=== PATIENT | female | born 1990 | race Caucasian/White ===

== ENCOUNTER 2019-05-31 12:16 | Outpatient (REF) | payer MEDICAID, SELFPAY ==
--- NOTE | 2019-05-31 10:00 | SKI_PTH ---
PATIENT: Deysi Ken LOC: [facility] U#:[id number] AGE/SX: 28/F ROOM: RE05/31/[address]: Chantal Moreno : 1990 BED: DIS: 05/31/2019 SPEC #: [id number] RECD: 05/31/19 12:26 STATUS: DARLIN REMarty #: [id number] QIAN: 05/31/19 10:[address]: Chantal Moreno DEPT: Surgical Specimen RECD BY: Meghan Norwood ENTERED: 05/31/19 12:27 SP TYPE: ALYSIA QUIÑONEZ DR: Aimee Colvin Tissues: 1 - SKIN BIOPSY(SHAVE/PUNCH) Procedures: IMMUNOPEROXIDASE STAIN SKIN LEVEL 4 Comments: [id number]
== END 2019-05-31 12:36 ==
LOC: NCHCN 12:16
PROVIDERS: PCP Nurse Practitioner Family; Visit Provider Family Medicine
DX: D22.4 Melanocytic nevi of scalp and neck (principal)
CPT/HCPCS: 88305; 88361

== ENCOUNTER 2022-11-23 13:58 | Outpatient (CLI) | payer MEDICAID, SELFPAY ==
[2022-11-23 14:32] VITALS: BP 121/72; PULSE 86; TEMP 36.7
[2022-11-23 14:35] VITALS: BP 121/72; PULSE 86
[2022-11-23] MEDS: IRON SUCROSE COMPLEX 200 MG in Normal Saline 100 ML 400 MG IVPB (15:01)
--- NOTE | 2022-11-23 16:02 | W.OBNST ---
Date of service: 11/23/22 Time of Service: 16:02 NST Evaluation Reason for NST Reasons for Nonstress Test: GDM-DIET CONTROLLED Gestational Age Gestational Age in Weeks and Days: 35 Weeks and 4Days Test and Monitor Explained Test/Monitor Explained: Test Explained, Monitor Explained and Patient Verbalized Understanding Vital Signs Blood Pressure: 121/72 Pulse: 86 Temperature: 98.1 F NST Information Date on Monitor: 11/23/22 Time on Monitor: 14:28 Date off Monitor: 11/23/22 Time off Monitor: 15:18 Total Time on Monitor: 50 NST Interventions: PO Hydration NST Evaluation Patient States Movement: Present FHR Baseline: 135 Variability: Moderate 6-25 bpm Accelerations: 15x15 Decelerations: None NST Results: Reactive Note Ultrasound Done: N/A. NST Note Note: Deysi presented to [facility] for first visit after transferring care here. Weekly testing was recommended due to history of preeclampsia and Current GDM. Anemia diagnosed today with labwork. NST is reactive. Iron infusion provided with venofer IV. GBS sent. preeclampsia labs normal today. RTO in 5 days for visit and NST. Will plan to administer another dose of venofer if indicated., NST Reviewed and Verified by: Luna Luna
[2022-11-23 16:05] VITALS: BP 121/72; PULSE 86; TEMP 36.7
== END 2022-11-23 15:40 | disposition home or self-care (01) ==
LOC: BCD 14:22 → OBS 14:41
PROVIDERS: PCP Nurse Practitioner Family; Visit Provider Advanced Practice Midwife
DX: O24.410 Gestational diabetes mellitus in pregnancy, diet controlled (principal); O09.293 Supervision of pregnancy with other poor reproductive or obstetric history, third trimester; Z3A.35 35 weeks gestation of pregnancy; O99.013 Anemia complicating pregnancy, third trimester
CPT/HCPCS: 59025; 87081; J1756

== ENCOUNTER 2022-11-23 13:59 | Outpatient (REF) | payer MEDICAID, SELFPAY ==
[2022-11-23 15:22] LABS: *AMPHETAMINES SCREEN URINE Negative (Negative); *BARBITURATES SCREEN URINE Negative (Negative); *BENZODIAZEPINES SCREEN URINE Negative (Negative); Cannabinoids THC Negative (Negative); Cocaine Screen,Urine Negative (Negative); METHADONE URINE SCREEN Negative (Negative); OPIATES URINE SCREEN Negative (Negative)
[2022-11-23 15:29] LABS: Tricyclic Antidepressants Negative (Negative)
[2022-12-05 03:18] LABS: Buprenorphine Negative ng/mL (Cutoff: 5.0)
== END 2022-11-23 14:00 | disposition home or self-care (01) ==
LOC: LBN 13:59
PROVIDERS: PCP Nurse Practitioner Family; Visit Provider Advanced Practice Midwife
DX: Z34.93 Encounter for supervision of normal pregnancy, unspecified, third trimester (principal)
CPT/HCPCS: 36415; 80053; 80307; 80348; 85027; 86787; 86900; 86901; 83036; 84550; 87081

== ENCOUNTER 2022-11-23 14:47 | Outpatient (CLI) | payer MEDICAID, SELFPAY ==
[2022-11-23 14:34] LABS: HCT 30.3 % (36.0-46.0); HGB 10.1 g/dL (11.2-15.7); MCH 28.1 pg (27.0-33.0); MCHC 33.3 % (32.0-36.0); MCV 84 fL (80-95); MPV 9.6 fL (8.0-11.0); Platelet Count 185 10^3/uL (130-400); RDW 14.7 % (11.7-14.6); WBC 7.31 10^3/uL (4.4-10.8)
[2022-11-23 14:51] LABS: ALT 24 U/L (14-59); AST 25 U/L (15-37); Albumin 2.5 g/dL (3.4-5.0); Alkaline Phosphatase 121 U/L (46-116); Anion Gap 12.7 mmol/L (3-11); BUN 7 mg/dL (7-18); Bilirubin, Total 0.3 mg/dL (0.2-1.0); CO2 23.3 mmol/L (21.0-32.0); CREATININE 0.6 mg/dL (0.55-1.02); Calcium 9.2 mg/dL (8.5-10.1); Chloride 104 mmol/L (98-107); Estimated GFR 122.99 (mL/min/1.73m2); Glucose 78 mg/dL (74-106); Sodium 140 mmol/L (136-145); Total Protein 6.2 g/dL (6.4-8.2); Uric Acid 4.4 mg/dL (2.6-6.0)
[2022-11-23 14:54] LABS: Hemoglobin A1C 5.4 % (<5.7)
[2022-11-23 14:59] LABS: Potassium 2.8 mmol/L (3.5-5.1)
[2022-11-25 12:10] LABS: Varicella IgG Antibody Positive (See Note)
== END 2022-11-23 14:48 | disposition home or self-care (01) ==
LOC: LBO 14:47
PROVIDERS: PCP Nurse Practitioner Family; Visit Provider Advanced Practice Midwife
DX: O09.293 Supervision of pregnancy with other poor reproductive or obstetric history, third trimester; O24.410 Gestational diabetes mellitus in pregnancy, diet controlled; Z3A.35 35 weeks gestation of pregnancy
CPT/HCPCS: 36415; 80053; 80348; 85027; 86787; 86850; 86900; 86901; 83036; 84550; 87081

== ENCOUNTER 2022-11-28 08:13 | Outpatient (CLI) | payer MEDICAID, SELFPAY ==
[2022-11-28 09:00] VITALS: BP 129/82; PULSE 82
[2022-11-28 09:01] VITALS: BP 129/82; PULSE 82; TEMP 37
[2022-11-28 09:45] LABS: Abs Immature Grans 0.02 10^3/uL (0.0-0.06); Absolute Basophil Count 0.03 10^3/uL (0.0-0.2); Absolute Eosinophil Count 0.27 10^3/uL (0.0-0.7); Absolute Lymphocyte Count 1.95 10^3/uL (1.2-3.4); Absolute Monocyte Count 0.41 10^3/uL (0.1-0.8); Basophils % 0.4; Eosinophils % 3.5; HCT 30.9 % (36.0-46.0); HGB 9.9 g/dL (11.2-15.7); Immature Grans % 0.3; Lymphocytes % 25.4; MCH 27.8 pg (27.0-33.0); MCV 87 fL (80-95); MPV 9.7 fL (8.0-11.0); Monocytes % 5.3; Neutrophils % 65.1; Platelet Count 193 10^3/uL (130-400); RBC 3.56 10^6/uL (3.93-5.22); RDW 15.9 % (11.7-14.6); RDW-SD 47.8 fL; WBC 7.68 10^3/uL (4.4-10.8)
--- NOTE | 2022-11-28 09:56 | W.OBNST ---
Date of service: 11/28/22 Time of Service: 09:56 NST Evaluation Reason for NST Reasons for Nonstress Test: GDM-DIET CONTROLLED Gestational Age Gestational Age in Weeks and Days: 36 Weeks and 2Days Test and Monitor Explained Test/Monitor Explained: Test Explained, Monitor Explained and Patient Verbalized Understanding Vital Signs Blood Pressure: 129/82 Pulse: 82 Temperature: 98.6 F Urine Results Urine Protein: Negative Urine Ketones: Negative Urine Glucose: Negative Urine Blood: Negative NST Information Date on Monitor: 11/28/22 Time on Monitor: 08:55 Date off Monitor: 11/28/22 Time off Monitor: 09:32 Total Time on Monitor: 37 NST Interventions: None Contraction Frequency: 0 NST Evaluation Patient States Movement: Present FHR Baseline: 150 Variability: Moderate 6-25 bpm Accelerations: 15x15 Decelerations: None NST Results: Reactive Note Ultrasound Done: N/A. NST Note Note: NST reactive. Hgb 9.9 today venofer 200 mg IV infusion provided. RTO 1 week. NST Reviewed and Verified by: Luna Luna
[2022-11-28 09:58] VITALS: BP 129/82; PULSE 82; TEMP 37
[2022-11-28] MEDS: IRON SUCROSE COMPLEX 200 MG in Normal Saline 100 ML 400 MG IVPB (10:41)
[2022-11-28] MEDS: Normal Saline Flush 10 ML SYR (10:49)
== END 2022-11-28 11:06 | disposition home or self-care (01) ==
LOC: BCD 08:14 → OBS 08:52
PROVIDERS: PCP Nurse Practitioner Family; Visit Provider Advanced Practice Midwife
DX: O24.410 Gestational diabetes mellitus in pregnancy, diet controlled (principal); Z3A.36 36 weeks gestation of pregnancy
CPT/HCPCS: 36415; 96365; 59025; 85025; J1756

== ENCOUNTER 2022-11-30 02:45 | Outpatient (CLI) | payer MEDICAID, SELFPAY ==
--- NOTE | 2022-11-30 08:45 | DI.US_ITS ---
Exam(s) US OB CHENG WEIGHT EXAM: US OB CHENG WEIGHT CLINICAL HISTORY: growth at 36 wks, 024.419. TECHNIQUE: Transabdominal obstetrical ultrasound performed. COMPARISON: No exams were available for comparison FINDINGS: Number of fetuses: 1 position: CEPHALIC Placental location: There is a grade 2 anterior placenta. No evidence of previa. BIOMETRIC DATA: BPD: 8.78 cm, 35 weeks 3 days HC: 33.57 cm, 38 weeks 3 days AC: 33.41 cm, 37 weeks 2 days FL: 7.53 cm, 38 weeks 4 days EFW: 3229.24 g, LINK-TO-SR, 78.3 % Composite Age: 37 weeks 3 days JENNY: 12/18/2022 Heart Rate: 140 bpm Amniotic fluid index: 10.06 cm. Visually, amount of fluid is within normal limits. IMPRESSION: 1. Single live intrauterine gestation as above. 2. Estimated weight is 3229gms. This is the 78th percentile. 3. Amniotic fluid index is 10.1 cm. Visually within normal limits. DATA REPOSITORY:
== END 2022-11-30 03:05 ==
LOC: DI 02:45
PROVIDERS: PCP Nurse Practitioner Family; Visit Provider Advanced Practice Midwife
DX: O24.410 Gestational diabetes mellitus in pregnancy, diet controlled (principal)
CPT/HCPCS: 76816

== ENCOUNTER 2022-12-02 09:14 | Outpatient (CLI) | payer MEDICAID, SELFPAY ==
[2022-12-02] MEDS: IRON SUCROSE COMPLEX 200 MG in Normal Saline 100 ML 400 MG IVPB (09:51)
[2022-12-02 09:52] VITALS: BP 129/81; PULSE 80; TEMP 36.4
--- NOTE | 2022-12-02 11:06 | W.OBNST ---
Date of service: 12/02/22 Time of Service: 11:06 NST Evaluation Reason for NST Reasons for Nonstress Test: GDM-DIET CONTROLLED Gestational Age Gestational Age in Weeks and Days: 37 Weeks and 0Days Test and Monitor Explained Test/Monitor Explained: Test Explained, Monitor Explained and Patient Verbalized Understanding Vital Signs Blood Pressure: 129/81 Pulse: 80 Temperature: 97.5 F Urine Results Urine Protein: Negative Urine Ketones: Negative Urine Glucose: Negative Urine Blood: Negative NST Information Date on Monitor: 12/02/22 Time on Monitor: 09:16 Date off Monitor: 12/02/22 Time off Monitor: 09:50 Total Time on Monitor: 34 NST Interventions: PO Hydration and Other Contraction Frequency: occasional NST Evaluation Patient States Movement: Present FHR Baseline: 140 Variability: Moderate 6-25 bpm Accelerations: 15x15 Decelerations: None NST Results: Reactive Note Ultrasound Done: N/A. NST Note Note: Iron infusion done RTO next Monday for weekly NST NST Reviewed and Verified by: Gavi Eid
[2022-12-02 11:07] VITALS: BP 129/81; PULSE 80; TEMP 36.4
== END 2022-12-02 10:11 | disposition home or self-care (01) ==
LOC: BCD 09:15 → OBS 09:38
PROVIDERS: PCP Nurse Practitioner Family; Visit Provider Advanced Practice Midwife
DX: O24.410 Gestational diabetes mellitus in pregnancy, diet controlled (principal); Z3A.37 37 weeks gestation of pregnancy
CPT/HCPCS: 96365; 59025; J1756

== ENCOUNTER 2022-12-07 08:57 | Outpatient (CLI) | payer MEDICAID, SELFPAY ==
[2022-12-07 09:16] VITALS: BP 144/91; PULSE 73
[2022-12-07 09:33] VITALS: BP 133/78; PULSE 80
[2022-12-07 09:46] VITALS: BP 133/78; PULSE 80; TEMP 36.5
[2022-12-07] MEDS: IRON SUCROSE COMPLEX 200 MG in Normal Saline 100 ML 400 MG IVPB (10:20)
--- NOTE | 2022-12-07 10:21 | W.OBNST ---
Date of service: 12/07/22 Time of Service: 10:21 NST Evaluation Reason for NST Reasons for Nonstress Test: GDM-DIET CONTROLLED Gestational Age Gestational Age in Weeks and Days: 37 Weeks and 5Days Test and Monitor Explained Test/Monitor Explained: Test Explained, Monitor Explained and Patient Verbalized Understanding Vital Signs Blood Pressure: 133/78 Pulse: 80 Temperature: 97.7 F Urine Results Urine Protein: Negative Urine Ketones: Negative Urine Glucose: Negative Urine Blood: Negative NST Information Date on Monitor: 12/07/22 Time on Monitor: 09:13 Date off Monitor: 12/07/22 Time off Monitor: 09:39 Total Time on Monitor: 26 NST Interventions: Notify Provider and Other Contraction Frequency: 0 NST Evaluation Patient States Movement: Present FHR Baseline: 145 Variability: Moderate 6-25 bpm Accelerations: 15x15 Decelerations: None NST Results: Reactive Note Ultrasound Done: N/A. NST Note Note: Repeat NST 12/16 NST Reviewed and Verified by: Gavi Eid
[2022-12-07 10:22] VITALS: BP 133/78; PULSE 80; TEMP 36.5
== END 2022-12-07 10:40 | disposition home or self-care (01) ==
LOC: BCD 08:57 → OBS 09:01
PROVIDERS: PCP Nurse Practitioner Family; Visit Provider Advanced Practice Midwife
DX: O24.410 Gestational diabetes mellitus in pregnancy, diet controlled (principal); Z3A.37 37 weeks gestation of pregnancy
CPT/HCPCS: 96365; 59025; J1756

== ENCOUNTER 2022-12-13 19:52 | Outpatient (CLI) | payer MEDICAID, SELFPAY ==
[2022-12-13 20:45] VITALS: BP 142/81; PULSE 85; RESP 18; TEMP 36.7
[2022-12-13 21:52] VITALS: BP 142/81; PULSE 85; TEMP 208.6; TEMP 98.1
[2022-12-13] MEDS: Zolpidem 5 MG TAB 10 MG PO (22:15)
--- NOTE | 2022-12-13 22:55 | W.OBNST ---
Date of service: 12/13/22 Time of Service: 22:55 NST Evaluation Reason for NST Reasons for Nonstress Test: OTHER, SEE COMMENT Reason for NST Other: rule out labor Gestational Age Gestational Age in Weeks and Days: 38 Weeks and 4Days Test and Monitor Explained Test/Monitor Explained: Test Explained, Monitor Explained and Patient Verbalized Understanding Vital Signs Blood Pressure: 142/81 Pulse: 85 Temperature: 208.6 F Urine Results Urine Protein: Negative Urine Ketones: Positive Urine Glucose: Negative Urine Blood: Negative NST Information Date on Monitor: 12/13/22 Time on Monitor: 20:39 Date off Monitor: 12/13/22 Time off Monitor: 21:37 Total Time on Monitor: 58 NST Interventions: PO Hydration NST Evaluation Patient States Movement: Present FHR Baseline: 145 Variability: Moderate 6-25 bpm Accelerations: 15x15 Decelerations: Variable NST Results: Reactive Note Ultrasound Done: N/A. NST Note Note: Claude is here with her aunt with report of irregular contractions since 023, strong at times. Contractions remain irregular, SVE performed. 2/-2/50%, POSTERIOR. SIGNS OF LABOR REVIEWED. KIMBERLY OFFERED FOR SLEEP TONIGHT WHICH CLAUDE WOULD LIKE TO TRY. aMIEN 10 MG WAS ADMINISTERED. SHE HAS A RIDE BACK TO THE CENTER WITH HER AUNT. SIGNS OF LABOR REVIEWED. NST Reviewed and Verified by: Luna Luna
[2022-12-13 22:58] VITALS: BP 142/81; PULSE 85; TEMP 208.6; TEMP 98.1
== END 2022-12-13 22:13 ==
LOC: BCD 19:54 → OBS 12-14 10:30
PROVIDERS: PCP Nurse Practitioner Family; Visit Provider Advanced Practice Midwife
DX: O60.03 Preterm labor without delivery, third trimester (principal); Z3A.38 38 weeks gestation of pregnancy
CPT/HCPCS: 59025

== ENCOUNTER 2022-12-14 05:26 | Inpatient (IN) | payer MEDICAID, SELFPAY ==
[2022-12-14] VITALS (100 sets, daily range): BP systolic 106–160; BP diastolic 56–93; PULSE 62–102; RESP 18–20; TEMP 36.8–37.3; O2SAT 92–100; BMI 41.0
--- NOTE | 2022-12-14 05:36 | HPE_ITS ---
Date of service: 12/14/22 Time of Service: 05:36 Assessment and Plan Assessment and plan (1) Spontaneous onset of labor: Status: Acute Assessment and plan: Admit to Center. Comfort measures. Deysi is using nitrous oxide with good effect and she requests an epidural. Anesthesia was paged. Anticipate . (2) Gestational diabetes mellitus (GDM) affecting second : Status: Acute Assessment and plan: CMP ordered OB-HPI Labor/Delivery History of Present Illness Reason for Visit: Rule-out labor Chief Complaint: Uterine Contractions. JENNY Calculator Estimated Delivery Date Method Current WG Current Estimate 12/23/22 LMP (Certain) 38w 5d Comments: Deysi was evaluated last evening for rule out labor. She returned home with ambien 10 mg and she rested for a few hours before strong contractions started. She denies rupture of membranes. She is experiencing strong regular contractions. History of Present Expected Delivery Route/Plan - CNM FOB/exbyfrnd - not involved (2nd child w/pt, [place] of [place]). He may come to the . BG Plans epidural, no support people coming Wants immediate Nexplanon GDM, diet controlled, plan IOL @ 39 wks GBS negative Specific Issues/Plan 1. Transfer from [place] at 35 wks 2. GDM, diet controlled (per pt report) 2a. HgbA1C at 35 wks=5.4 2b. MFM consult in [place]: recommend NST's weekly, IOL @ 39-40 wks 3. Obesity and hx of pre-eclampsia, taking low dose ASA 4. EFW scan at 32 wks nml & AGA; repeat @ 36 wks on 11/30/22 4a. AT 36 wks: EFW in 78th percentile, CHENG 10 5. Anemia @ 35 wks (hgb 8.6), weekly iron infusion at the Center with NSTs PFSH All Active Problems (Updated 12/14/22 @ 05:39 by Luna Luna CNM) Spontaneous onset of labor (Acute) Anemia affecting in third trimester (Acute) BMI 39.0-39.9,adult (Acute) Class 2 obesity due to excess calories in adult (Acute) Asthma (Chronic) History of pre-eclampsia in prior , currently (Acute) Gestational diabetes mellitus (GDM) affecting second (Acute) (Acute) Surgical History (Updated 11/23/22 @ 13:54 by Clarice Varma) History of cholecystectomy Social History Smoking/Tobacco Use Status: Never Smoking risk assessment performed?: Yes History History 2 Para 1 Hx # Term Pregnancies 1 Multiple births 0 Hx # Pregnancies 0 Ectopic pregnancies 0 AB induced 0 Hx Number of Living Children 1 AB spontaneous 0 Past Pregnancies Del. Date GA/Weeks # Preg Succ Route Wgt Sex Labor Lgth Anesth esia Location Prov Complic 02/02/18 36 No Yes vaginal 5 lb 12 oz Female induction fo r 9 days, then quick labor [facility], [place] Delivery Date: 02/02/18 Last Updated by: Gavi Eid IOL pre-eclampsia & GDM: cervidil x3, miso x2, AROM, pitocin, epidural at 2cm, then rapid labor/. [place] Meds Allergies and Home Medications Allergies Allergy/AdvReac Type Severity Reaction Status Date / Time Sulfa (Sulfonamide Allergy Hives Verified 12/07/22 08:38 Antibiotics) Home Medications Medication Instructions Recorded Confirmed Type albuterol 90 mcg/actuation aerosol mcg inhalation 11/23/22 12/02/22 History inhaler alcohol swabs (BD Alcohol Swabs) 1 pad topical QID #100 ea 11/23/22 12/02/22 Rx aspirin 81 mg tablet,delayed 81 mg PO DAILY 11/23/22 12/02/22 History release blood sugar diagnostic (FreeStyle #100 ea 11/23/22 12/02/22 Rx Lite Strips) blood-glucose meter (FreeStyle #1 ea 11/23/22 12/02/22 Rx [place]fe Lite kit) cetirizine 10 mg tablet (All Day 10 mg PO DAILY PRN 11/23/22 12/02/22 History Allergy (cetirizine)) fluticasone propionate 110 2 puff inhalation BID 11/23/22 12/02/22 History mcg/actuation HFA aerosol inhaler (Flovent HFA) lancets 28 gauge (FreeStyle #100 ea 11/23/22 12/02/22 Rx Lancets) levocetirizine 5 mg tablet (Xyzal) 5 mg PO DAILY PRN 11/23/22 12/02/22 History loratadine 10 mg tablet (Allergy 10 mg PO DAILY PRN 11/23/22 12/02/22 History Relief (loratadine)) omeprazole 20 mg capsule,delayed 20 mg PO DAILY 11/23/22 12/02/22 History release Exam Detailed Labor and Delivery Exam Dilation: 3 Effacement (%): 90 station: -1 Consistency: soft Linder Score: Cervical Points Exam 0 1 2 3 Dilation Closed 1-2cm 3-4 cm 5-6cm Effacement 0-30% 40-50% 60-70% 80% Consistency Firm Medium Soft Station -3 -2 -1,0 +1,+2 Position Posterior Mid Anterior Amniotic Membrane Status: Intact Monitor Mode: External Contraction Frequency(min): every 3 min Contraction Duration(sec): 60 Contraction Intensity: Moderate/Strong Fetus A Heart Rate Baseline: 140 Monitor Accelerations: 15 X 15 Monitor Decelerations: None Variability: Moderate (6-25 BPM) Presentation: Vertex Categories: Category I Respiratory Exam Respiratory Exam: Normal Cardiovascular Exam Cardiovascular Exam: Normal Abdominal Exam Abdominal Exam: Normal Exam Exam: Normal Extremities Exam Extremities Exam: Normal Psychiatric Exam Psychiatric Exam: Normal Results Results Group Beta Strep: Negative Blood Type: O+ Rubella Status: Immune Varicella Immunity: Immune Risk Assessment Risk for Shoulder Dystocia Historical/Initial OB: POSITIVE FOR: Pre- BMI>30; NEGATIVE FOR: Pelvic Abnormality, Previous Shoulder Dystocia or Previous Macrosomia Increased Risk?: Yes Delivery Plan @ 36wks: IOL at 39 wks, Risk for Pre-Eclampsia Daily Dose ASA Indicated: Yes Date Initiated/Initials: pt is taking currently. Yes, if one or more: POSTIVE FOR: Hx Pre-E/Gest HTN; NEGATIVE FOR: Chronic HTN, Multiple Gestation, Pre-gestational DM, Renal Disease, Systemic Lupus or APA Syndrome Yes, if 2 or more: POSITIVE FOR: BMI>30; NEGATIVE FOR: Nulliparity, Age>= 35 yrs, >10yr btwn pregnancies, ethinicty, Mother/Sister w/ Pre-E or Previous IUGR Risk for Post- Hemorrhage Initial: NEGATIVE FOR: Multiple Gestation, Previous PPH, Known Clotting Deficiency, Grand Multiparity or Anticoagulation Counseled re: Active Management: Yes Risks Reviewed Risks Reviewed Upon Admission: Yes
--- NOTE | 2022-12-14 06:19 | W.ANESPRE ---
General Info Date of Service Date Performed: 12/14/22 Height: 5 ft 7 in Weight: 118.841 kg Body Mass Index (BMI): 41.0 Meds Allergies and Home Medications Allergies Allergy/AdvReac Type Severity Reaction Status Date / Time Sulfa (Sulfonamide Allergy Hives Verified 12/07/22 08:38 Antibiotics) Home Medication Medication Instructions Recorded albuterol 90 mcg/actuation aerosol mcg inhalation 11/23/22 inhaler alcohol swabs (BD Alcohol Swabs) 1 pad topical QID #100 ea 11/23/22 aspirin 81 mg tablet,delayed 81 mg PO DAILY 11/23/22 release blood sugar diagnostic (FreeStyle #100 ea 11/23/22 Lite Strips) blood-glucose meter (FreeStyle #1 ea 11/23/22 [place] Lite kit) cetirizine 10 mg tablet (All Day 10 mg PO DAILY PRN 11/23/22 Allergy (cetirizine)) fluticasone propionate 110 2 puff inhalation BID 11/23/22 mcg/actuation HFA aerosol inhaler (Flovent HFA) lancets 28 gauge (FreeStyle #100 ea 11/23/22 Lancets) levocetirizine 5 mg tablet (Xyzal) 5 mg PO DAILY PRN 11/23/22 loratadine 10 mg tablet (Allergy 10 mg PO DAILY PRN 11/23/22 Relief (loratadine)) omeprazole 20 mg capsule,delayed 20 mg PO DAILY 11/23/22 release Current Visit Medications: Current Medications Generic Name Dose Route Start Last Admin Trade Name Freq PRN Reason Stop Dose Admin Bupivacaine HCl 0 ml 12/14/22 06:12 Bupivacaine 0.25% Pres-Free 10 Ml Vial EP 12/14/22 06:13 NOW ONE Ephedrine Sulfate 5 mg 12/14/22 05:37 Ephedrine 50 Mg/Ml Vial IVP DIRECTED PRN Fentanyl 0 mcg 12/14/22 06:12 Fentanyl 100 Mcg/2 Ml Vial EP 12/14/22 06:13 NOW ONE Fentanyl/Ropivacaine 200 ml 12/14/22 06:00 Fentanyl/Ropivacaine 2 Mcg/Ml And 0.1% 200 Ml Cadd Cassette EP DIRECTED BIGG Sodium Chloride 500 mls @ 0 mls/hr 12/14/22 05:26 Saline 500ml Bag IV PRN PRN As Directed Ringer's Solution 500 mls @ 500 mls/hr 12/14/22 05:35 IV 12/14/22 06:34 BOLUS ONE IV Miscellaneous Supplies 1 each 12/14/22 05:30 Iv Access IV DIRECTED BIGG Naloxone HCl 0 mg 12/14/22 05:37 Naloxone 0.4 Mg/Ml Vial IVP DIRECTED PRN Sodium Chloride 0 ml 12/14/22 05:26 Normal Saline Flush 10 Ml Syr IVP PRN PRN PFSH Active Problems Active Problems: Problem Status Onset Code Spontaneous onset of labor Anemia affecting in third trimester O99.013 BMI 39.0-39.9,adult Z68.39 Class 2 obesity due to excess calories in adult E66.09 Asthma J45.909 History of pre-eclampsia in prior , currently O09.299 Gestational diabetes mellitus (GDM) affecting second O24.419 Z34.90 Surgical History Surgical History (Updated 11/23/22 @ 13:54 by Clarice Varma) History of cholecystectomy Tobacco Smoking/Tobacco Use Status: Never Prental History History 2 Para 1 Hx # Term Pregnancies 1 Multiple births 0 Hx # Pregnancies 0 Ectopic pregnancies 0 AB induced 0 Hx Number of Living Children 1 AB spontaneous 0 Past Pregnancies Del. Date GA/Weeks # Preg Succ Route Wgt Sex Labor Lgth Anesthesia Location [facility] 02/02/18 36 No Yes vaginal 2608.156 g Female induction for 9 days, then quick labor [place], [place] Delivery Date: 02/02/18 Last Updated by: Gavi Eid IOL pre-eclampsia & GDM: cervidil x3, miso x2, AROM, pitocin, epidural at 2cm, then rapid labor/. [place] Vital Signs and Lab Results Vital Signs Most Recent Vital Signs in EMR: Most Recent Vital Signs Temp Pulse Resp BP 36.9 C 81 20 159/89 H 12/14/22 05:50 12/14/22 06:02 12/14/22 05:50 12/14/22 06:02 Lab Results 12/14/22 05:26 12/14/22 05:40 Blood Type / Crossmatch: Patient ABO/Rh O Positive 11/23/22 Antibody Screen NEGATIVE 11/23/22 Complete Blood Count: White Blood Count 7.68 10^3/uL (4.4-10.8) 11/28/22 09:35 Red Blood Count 3.56 10^6/uL (3.93-5.22) L 11/28/22 09:35 Hemoglobin 9.9 g/dL (11.2-15.7) L 11/28/22 09:35 Hematocrit 30.9 % (36.0-46.0) L 11/28/22 09:35 Platelet Count 193 10^3/uL (130-400) 11/28/22 09:35 Complete Metabolic Panel: Sodium 140 mmol/L (136-145) 11/23/22 14:25 Potassium 2.8 mmol/L (3.5-5.1) L* 11/23/22 14:25 Chloride 104 mmol/L (98-107) 11/23/22 14:25 Carbon Dioxide 23.3 mmol/L (21.0-32.0) 11/23/22 14:25 BUN 7 mg/dL (7-18) 11/23/22 14:25 Creatinine 0.6 mg/dL (0.55-1.02) 11/23/22 14:25 Est GFR (CKD-EPI 2020) 122.99 (mL/min/1.73m2) 11/23/22 14:25 Calcium 9.2 mg/dL (8.5-10.1) 11/23/22 14:25 Albumin 2.5 g/dL (3.4-5.0) L 11/23/22 14:25 Glucose 78 mg/dL (74-106) 11/23/22 14:25 Hemoglobin A1c 5.4 % (<5.7) 11/23/22 14:25 Liver Function Panel: Alanine Aminotransferase (ALT/SGPT) 24 U/L (14-59) 11/23/22 14:25 Aspartate Amino Transf (AST/SGOT) 25 U/L (15-37) 11/23/22 14:25 Coagulation Panel: No Data to Display Cardiac Panel: No Data to Display Arterial Blood Gas: No Data to Display Venous Blood Gas: No Data to Display Pancreas Panel: No Data to Display Thyroid Panel: No Data to Display Infectious Disease: No Data to Display Blood Cultures: No Data to Display Toxicology Panel: Urine Amphetamines Screen Negative (Negative) 11/23/22 13:10 Urine Benzodiazepines Screen Negative (Negative) 11/23/22 13:10 Urine Barbiturates Screen Negative (Negative) 11/23/22 13:10 Urine Cocaine Screen Negative (Negative) 11/23/22 13:10 Urine Methadone Screen Negative (Negative) 11/23/22 13:10 Urine Opiates Screen Negative (Negative) 11/23/22 13:10 Ur Tricyclic Antidepressants Screen Negative (Negative) 11/23/22 13:10 Ur Tetrahydrocannabinol (THC) Scrn Negative (Negative) 11/23/22 13:10 Panel: No Data to Display Anesthesia Assessment and Plan Anesthesia History Personal History: No History of Anesthesia Complications Family History: No Family History of Anesthesia Complications Exercise Tolerance Exercise Tolerance: Metabolic Equivalents>4 Pertinent Negatives Pertinent Negatives: No Major Cardiovascular Symptoms or Complaints, No Major Pulmonary Symptoms or Complaints, No History of CVA/TIA and Other (acid reflux) Cardiac & Pulmonary Exam Cardiac Exam: Normal S1/S2 Heart Sounds Pulmonary Exam: Clear Bilateral Breath Sounds Implantable Cardiac Device Does patient have a Pacemaker or an ICD?: No Airway Exam Known Difficult Airway: No Mallampati Class: 2 Mouth Opening: Normal (> 3cm) Thyromental Distance: Less than 3 cm Neck Range of Motion: Full ROM Neck Circumference: Normal Teeth Condition: Normal Dentition ASA Classification ASA Score: ASA 2 Emergency Case?: No NPO Status NPO Status: Full Stomach Status Status: Confirmed Anesthesia Plan Resuscitation Status: Full Code Anesthesia Technique: Labor Epidural Airway Planned: Natural Airway Monitors Used: Standard Monitors
[2022-12-14 06:22] LABS: HGB 11.5 g/dL (11.2-15.7); MCH 28.5 pg (27.0-33.0); MCHC 32.9 % (32.0-36.0); MCV 87 fL (80-95); MPV 9.4 fL (8.0-11.0); Platelet Count 189 10^3/uL (130-400); RBC 4.03 10^6/uL (3.93-5.22); RDW 18.7 % (11.7-14.6); RDW-SD 59.4 fL; WBC 10.02 10^3/uL (4.4-10.8)
[2022-12-14 06:36] LABS: Uric Acid 4.1 mg/dL (2.6-6.0)
[2022-12-14 06:38] LABS: ALT 24 U/L (14-59); AST 14 U/L (15-37); Albumin 2.6 g/dL (3.4-5.0); Alkaline Phosphatase 148 U/L (46-116); Anion Gap 12.6 mmol/L (3-11); BUN 7 mg/dL (7-18); Bilirubin, Total 0.6 mg/dL (0.2-1.0); CO2 22.4 mmol/L (21.0-32.0); CREATININE 0.6 mg/dL (0.55-1.02); Calcium 8.5 mg/dL (8.5-10.1); Chloride 102 mmol/L (98-107); Estimated GFR 122.23 (mL/min/1.73m2); Glucose 98 mg/dL (74-106); Sodium 137 mmol/L (136-145); Total Protein 6.5 g/dL (6.4-8.2)
[2022-12-14 06:45] LABS: Potassium 2.9 mmol/L (3.5-5.1)
[2022-12-14] MEDS: fentaNYL 100 MCG/2 ML VIAL EP (06:55)
[2022-12-14] MEDS: Bupivacaine 0.25% Pres-Free 10 ML VIAL EP (07:07)
--- NOTE | 2022-12-14 07:12 | ANES.NEUR_ITS ---
Epidural/Spinal Catheter Date Performed: 12/14/22 Procedure Start: 06:35 Procedure Stop: 07:06 Requesting Provider: Luna Luna Procedure Location: Obstetrics Reason Performed: Labor Epidural Standard Monitors Applied: ECG, Blood Pressure, SpO2 and See EMR for corresponding vital signs Patient Position: Sitting Sedation Given (Indicate Dose Given): No Sedation given Patient Mental Status: Awake Sterility: Hand Hygiene, Surgical Cap, Surgical Mask, Sterile Gloves and Chlorhexidine Procedure Location: L4-L5 Interspace Epidural Needle: Tuohy 18 Gauge Needle Length: 5 Inch Needle Approach: Midline Epidural Procedure: Skin Prepped, Sterile Drape Placed, 1% Lidocaine to skin and subcutaneous tissue with 25G needle, Tuohy Needle placed, Bone Contacted despite needle repositioning (L3-4), Epidural Catheter Placed (L4-5), Negative Heme, Negative CSF Flow and Tuohy Needle Removed Catheter Placed?: Catheter Placed Test Dose (Indicate Dose Given): 3ml 1.5% Lid ocaine with 1:200K Epinephrine Given Loss of Resistance Depth (cm): 8 Catheter depth at skin (cm): 14 Dressing: Tegaderm Applied and Chlorhexidine Dressing Epidural Provider Bolus (Indicate Dose Given): Total bolus dose given in 3-5 ml divided doses and Total Bupivacaine 0.25% Given (ml) Dose:: 6ML Additives (Indicate Dose Given ): Fentanyl PF Dose:: 100 MCGS Infusion Medication: Medication Infusion Began Medication Infusion: Ropivacaine 0.1% with Fentanyl 2mcg/ml Maintenance Infusion Rate (ml/hour): 10 PCEA Bolus Dose (ml): 5 Block Level: N/A Paresthesia: Left Paresthesia Duration: Transient Ultrasound: Not Used Number of Attempts (See previous attempts in note section): 3 Procedure Tolerated: Patient tolerated well Procedure Outcome: Successful Procedure Comment:: 2 failed attempts by LISSETTE Gray. 1 successful attempt by Nathalia Balderrama ENGINE SERVICE REPAIRER Performed By: Leslie Guerra Supervised By: Sonya Balderrama
[2022-12-14] MEDS: Lactated Ringers 1,000 ML 125 ML IV (07:24)
[2022-12-14 10:45] LABS: COMMENT (LAB VIEW ONLY) 105.25 mg/dL; PROTEIN 51.8 mg/dL; Prot/Crea Ur Ratio 0.49
[2022-12-14] MEDS: Oxytocin/Normal Saline 30 UNIT/500 ML BAG 334 UNITS IV (10:50)
--- NOTE | 2022-12-14 13:04 | W.OBDELIVERY ---
Date of service: 12/14/22 Time of Service: 13:04 OB Labor/ Delivery Information Baby A Delivery Delivery Method: Spontaneaous Presentation: Vertex Amniotic Fluid: Clear Estimated Blood Loss: 400 Delivery Outcome: Liveborn Complications: none Infant Transferred: Remains with Mother Note: Deysi rested well with epidural cathetre in place. She was examined at 100 and was 7-8 cms. AROM was performed for a large amount of clear fluid. FHTs 130s during first stage of labor. FHTs 140s in second stage. She progressed to full dilation and began pushing. Second stage huddle was done. Spontaneous delivery of female infant delivered in RACHAEL position. Baby was placed on mother's abdomen and dried and stimulated. Spontaneous cry. Cord was clamped and cut by Deysi. The placenta delivered was undelivered at 30 minutes after delivery with scant bleeding. It was manually removed by manually grasping the edge of the placenta at the cervical os and removing it with Prater presentation. Trailing membranes were also noted and teased gently out. The placenta appears to be intact with a three vessel cord. Pitocin 30 units was administered before delivery of the placenta. The pitocin was stopped to allow delivery of the placenta ad restarted after the placenta delivered. The perineum was inspected and . The baby did breastfeed. After delivery, Mother and baby and father of the baby were stable and bonding well in the delivery room and there were no complications. Providers Nurse Financial Services Technician: Luna Luna Cut Roll Machine Operator: Sonya Balderrama Nurse: Heather Benjamin Nurse: Sven Osuna Labor/Delivery Information Number of Babies in Womb: 1 Steroids Given: None Reason Steroids Not Administered: N/A Group Beta Strep: Negative Antibiotics Administered: No Rubella Status: Immune Blood Type: O+ Varicella Immunity: Immune Shoulder Dystocia: No Stages of Labor Onset of Labor Date: 12/14/22 Onset of Labor Time: 01:00 Complete Dilatation Date: 12/14/22 Complete Dilatation Time: 10:35 Labor - Stage 1 Duration: 9 hours and 35 minutes ROM Baby A: 12/14/22 ROM Baby A: 10:04 ROM Total Time- Baby A: [id number] Infant Delivery Date-Baby A: 12/14/22 Delivery Time-Baby A: 10:46 Labor Stage 2 Duration: 11 minutes Placenta Delivery Date-Baby A: 12/14/22 Placenta Delivery Time-Baby A: 11:21 Labor-Stage 3 Duration: 35 minutes Total Length of Labor-Baby A: 9 hours and 46 minutes Placenta Status: Retained Baby A Gender: Female Gestational Status: Early Term (37-38.6 wks) Gestational Age in Weeks/Days: 38 Weeks and 5 Days weight: 7 lb 14.986 oz Length-Baby A: 20.5 in Head Circumference-Baby A: 13.75 in Score-1 Minute Interval(Baby A) Heart Rate-1 minute: 100 BPM or Greater Respiratory Effort- 1 minute: Spontaneous/Strong Cry Muscle Tone-1 minute: Active Movement Reflex Response-1 minute: Prompt Response Color-1 minute: Bluish Hands or Feet Total Score-1 minute: 9 Score-5 Minute Interval(Baby A) Heart Rate- 5 minute: 100 BPM or Greater Respiratory Effort-5 minute: Spontaneous/Strong Cry Muscle Tone-5 minute: Active Movement Reflex Response-5 minute: Prompt Response Color-5 minute: Bluish Hands or Feet Total Score- 5 minute: 9
[2022-12-14] MEDS: Docusate Sodium 100 MG CAP PO (18:35)
[2022-12-14] MEDS: Acetaminophen 325 MG TAB 650 MG PO ×2 (18:35→23:54)
--- NOTE | 2022-12-14 18:58 | W.ANESPOSTOP ---
Postoperative Evaluation Date, Time and Location Date Performed: 12/14/22 Time Performed: 15:00 Patient Location: Obstetrics Vital Signs Most Recent Imported Vital Signs: Most Recent Vital Signs Temp Pulse Resp BP Pulse Ox 37.0 C 94 H 18 142/79 H 96 12/14/22 15:15 12/14/22 15:15 12/14/22 15:15 12/14/22 15:15 12/14/22 09:48 Pain Score Most Recent Pain Score: Most Recent Pain Score Pain Level 3 12/14/22 18:35 Assessment Mental Status: Awake (Alert & Oriented to Patient Baseline) Airway and Respiratory Function: Patent airway with normal (patient baseline) respiratory exam Cardiovascular Function: Hemodynamically Stable Hydration Status: Adequately Hydrated Nausea & Vomiting: No Nausea or Vomiting Pain: Pain is tolerable per patient Peripheral Nerve Block: Patient did not receive a nerve block
[2022-12-15] MEDS: Ibuprofen 600 MG TAB PO ×2 (02:33→08:07)
[2022-12-15 07:15] VITALS: BP 144/88; PULSE 73; RESP 14; TEMP 37.1
[2022-12-15] MEDS: Acetaminophen 325 MG TAB 650 MG PO (08:06)
--- NOTE | 2022-12-15 10:36 | DSE_ITS ---
Date of service: 12/15/22 Time of Service: 10:36 DS: Diagnosis Discharge Diagnosis (1) Term of female : Status: Acute Asessment and Plan: Normal preeclampsia labs on admission. Catheterized specimen for protein creatinene ratio in labor was 0.49. BP135/84 last night and 144/88 and 134/87 this morning. Deysi is caring for baby independently. Pain is managed well with oral analgesics. Voiding without difficulty. well. A - stable mother and baby , Post day 1 P - Discharge to home today. Routine post instructions. [facility] (2) Gestational diabetes mellitus (GDM) affecting second : Status: Acute Asessment and Plan: 2-hr GTT after 6 weeks (3) Proteinuria: Status: Acute Asessment and Plan: Repeat preeclampsia labs today are WNL. BP 130s/80s. Deysi will follow up with BP at her PCP Katya Ware's office tomorrow where she will be taking the baby or at [facility]. Discharge Plan Disposition Patient Disposition: Home Condition: Good Discharge Details Reason For Visit: Labor Admit Date/Time: 12/14/22 05:26 Admit Provider: Luna Luna Attending Provider: Luna Luna Primary Care Provider: Aimee Colvin Home Meds and New Rx's Prescriptions: No Action albuterol 90 mcg/actuation aerosol inhalation omeprazole 20 mg capsule,delayed release(DR/EC) 20 mg PO DAILY aspirin 81 mg tablet,delayed release (DR/EC) 81 mg PO DAILY fluticasone propionate [Flovent HFA] 110 mcg/actuation HFA aerosol inhaler 2 puff inhalation BID loratadine [Allergy Relief (loratadine)] 10 mg tablet 10 mg PO DAILY PRN cetirizine [All Day Allergy (cetirizine)] 10 mg tablet 10 mg PO DAILY PRN levocetirizine [Xyzal] 5 mg tablet 5 mg PO DAILY PRN (DME) blood-glucose meter [FreeStyle [place] Lite] Kit See Rx Instructions .Route Qty: 1 0RF Rx Instructions: As directed (DME) FreeStyle Lite Strips Strip See Rx Instructions .Route Qty: 100 2RF Rx Instructions: QID (DME) lancets [FreeStyle Lancets] 28 gauge misc See Rx Instructions .Route Qty: 100 2RF Rx Instructions: QID alcohol swabs [BD Alcohol Swabs] Pads, Medicated 1 pad topical QID Qty: 100 2RF Discharge Instructions Stand Alone Forms: BC Instructions, BC Post Vaginal Deliver Activity:: Activity as Tolerated Equipment/Supplies:: No Equipment Needed Diet:: As Tolerated Discharge Orders Discharge Orders: Discharge Order (Routine); Ordered 12/15/22 Ordered By: Luna Luna OB:DS Summary Summary Vaginal Delivery Method: Spontaneaous Episiotomy Description: None Contraception Discussed Contraception Discussed: Yes Contraceptive Plan: Levonorgestrel Implant (at 2 weeks post exam. ), Infant Gender-Baby A: Female weight: 7 lb 14.986 oz Status at Discharge Functional status at discharge: independent ambulation Overall status at discharge: patient is back to baseline Mental Status: mental status grossly normal Speech and Movement: speech and movement normal Mood: congruent mood Affect: normal affect Exam Physical Exam Vital signs: Temp Pulse Resp BP Pulse Ox 98.8 F 73 14 144/88 H 96 12/15/22 07:15 12/15/22 07:15 12/15/22 07:15 12/15/22 07:15 12/14/22 09:48 Respiratory Exam Respiratory Exam: Normal Cardiovascular Exam Cardiovascular Exam: Normal Fundal Exam Fundus: Below Umbilicus and Firm Extremities Exam Extremity Exam: Normal Skin Exam Skin Exam: Normal Psychiatric Exam Psychiatric Exam: Normal PFSH All Active Problems (Updated 12/15/22 @ 10:48 by Luna Luna CNM) Proteinuria (Acute) Term of female (Acute) BMI 39.0-39.9,adult (Acute) Class 2 obesity due to excess calories in adult (Acute) Asthma (Chronic) Gestational diabetes mellitus (GDM) affecting second (Acute) Surgical History (Updated 11/23/22 @ 13:54 by Clarice Varma) History of cholecystectomy Social History Smoking/Tobacco Use Status: Never Smoking risk assessment performed?: Yes History History 2 Para 1 Hx # Term Pregnancies 1 Multiple births 0 Hx # Pregnancies 0 Ectopic pregnancies 0 AB induced 0 Hx Number of Living Children 1 AB spontaneous 0 Past Pregnancies Del. Date GA/Weeks # Preg Succ Route Wgt Sex Labor Lgth Anesth esia Location Prov [facility] 08/10/18 36 No Yes vaginal 5 lb 12 oz Female induction fo r 9 days, then quick labor [facility], [place] Delivery Date: 02/02/18 Last Updated by: Gavi Eid IOL pre-eclampsia & GDM: cervidil x3, miso x2, AROM, pitocin, epidural at 2cm, then rapid labor/. [place] DS: Data Vitals/I&O Vitals and I&O: Vital Signs Temperature 98.8 F 12/15/22 07:15 Temperature Source Oral 12/15/22 07:15 Pulse 73 12/15/22 07:15 Pulse Rhythm Regular 12/15/22 07:15 Respiratory Rate 14 12/15/22 07:15 Blood Pressure 144/88 H 12/15/22 07:15 Blood Pressure Mean 106 12/15/22 07:15 Pulse Oximetry 96 12/14/22 09:48 Oxygen Delivery Method Room Air 12/14/22 05:50 Oxygen Flow Rate 0 12/14/22 05:50 Pain Level 3 12/15/22 08:07 Comment Pt just got up to bathroom. 12/14/22 15:15 Intake & Output 12/14/22 12/14/22 12/15/22 11:59 23:59 11:59 Intake Total 278.333 / 1128.333 850 / 1128.333 Output Total 900 / 1910 1010 / 1910 Balance -621.667 / -781.667 -160 / -781.667 Weight 262 lb Intake: IV 278.333 / 278.333 Oral 850 / 850 Output: Urine 400 / 1300 900 / 1300 Emesis 100 / 100 Blood 400 / 510 110 / 510 Other: Urine Color Yellow Urine Appearance Clear Clear Urine Odor None Comment Straight cath by CNM while waiting for placenta to deliver. Voiding Methods Toilet Data Completed and Pending Labs on day of discharge: Labs from last 24 hours 12/14/22 10:15 Ur Random Creatinine 105.25 U Random Total Protein 51.8 U [place] Prot/Creat Ratio 0.49
[2022-12-15 10:57] LABS: Abs Immature Grans 0.04 10^3/uL (0.0-0.06); Absolute Basophil Count 0.04 10^3/uL (0.0-0.2); Absolute Eosinophil Count 0.14 10^3/uL (0.0-0.7); Absolute Lymphocyte Count 2.14 10^3/uL (1.2-3.4); Absolute Monocyte Count 0.57 10^3/uL (0.1-0.8); Absolute Neutrophil Count 4.97 10^3/uL (1.2-6.7); Basophils % 0.5; Eosinophils % 1.8; HCT 31.4 % (36.0-46.0); HGB 10.4 g/dL (11.2-15.7); Immature Grans % 0.5; Lymphocytes % 27.1; MCH 28.7 pg (27.0-33.0); MCHC 33.1 % (32.0-36.0); MCV 87 fL (80-95); MPV 9.3 fL (8.0-11.0); Monocytes % 7.2; Neutrophils % 62.9; Platelet Count 192 10^3/uL (130-400); RBC 3.62 10^6/uL (3.93-5.22); RDW 18.8 % (11.7-14.6); RDW-SD 59.8 fL
[2022-12-15 11:17] LABS: ALT 18 U/L (14-59); AST 13 U/L (15-37); Albumin 2.2 g/dL (3.4-5.0); Alkaline Phosphatase 125 U/L (46-116); Anion Gap 9.4 mmol/L (3-11); BUN 10 mg/dL (7-18); Bilirubin, Total 0.2 mg/dL (0.2-1.0); CO2 24.6 mmol/L (21.0-32.0); CREATININE 0.7 mg/dL (0.55-1.02); Calcium 8.6 mg/dL (8.5-10.1); Chloride 107 mmol/L (98-107); Estimated GFR 117.77 (mL/min/1.73m2); Glucose 112 mg/dL (74-106); Potassium 3.1 mmol/L (3.5-5.1); Sodium 141 mmol/L (136-145); Total Protein 5.7 g/dL (6.4-8.2); Uric Acid 3.6 mg/dL (2.6-6.0)
[2022-12-15 14:49] VITALS: BP 133/85
== END 2022-12-15 16:50 | disposition home or self-care (01) | DRG 807 ==
LOC: OBS 05:37
PROVIDERS: Admitting Provider Advanced Practice Midwife; PCP Nurse Practitioner Family; Visit Provider Advanced Practice Midwife
DX: O24.420 Gestational diabetes mellitus in childbirth, diet controlled (principal); Z37.0 Single live birth; Z3A.38 38 weeks gestation of pregnancy; O99.214 Obesity complicating childbirth; O12.14 Gestational proteinuria, complicating childbirth; E66.9 Obesity, unspecified; O99.02 Anemia complicating childbirth; D64.9 Anemia, unspecified; O99.52 Diseases of the respiratory system complicating childbirth; O70.0 First degree perineal laceration during delivery; J45.909 Unspecified asthma, uncomplicated
CPT/HCPCS: 36415; 80053; 85027; 86850; 86900; 86901; 82565; 84156; 84550; 85025; J3010

== ENCOUNTER 2022-12-19 14:53 | Outpatient (CLI) | payer MEDICAID, SELFPAY ==
[2022-12-19 12:42] VITALS: BP 142/94; PULSE 73; RESP 18; TEMP 36.8
[2022-12-19 13:12] LABS: HCT 36.4 % (36.0-46.0); HGB 11.7 g/dL (11.2-15.7); MCH 28.1 pg (27.0-33.0); MCHC 32.1 % (32.0-36.0); MCV 88 fL (80-95); Platelet Count 248 10^3/uL (130-400); RBC 4.16 10^6/uL (3.93-5.22); RDW 18.5 % (11.7-14.6); RDW-SD 59.6 fL; WBC 7.38 10^3/uL (4.4-10.8)
--- NOTE | 2022-12-19 13:29 | W.PM.PROGNOT ---
Date of Service Date of service: 12/19/22 Time of Service: 13:00 Assessment and Plan Assessment and plan (1) Encounter for routine follow-up: Status: Acute Assessment and plan: A: 5 days , s/p R/o gHTN vs Pre-eclampsia; also r/o endometritis Mild range BP noted 142/92, no severe features or sx Nml presentation, nml exam, nml labs (nml WBC, nml plts, CMP nml) P: Recheck BP in 3 days in [facility] Call for fever or increased bleeding or pain, MARTIN or visual disturbance Reviewed sx of HTN as well as endometritis Labor was 5 hours with AROM just prior to delivery, Placenta manually removed after 30 minutes, Prater with trailing membranes, appeared intact No uterine exploration was performed per delivery note Pt discharged home with nml BP and afebrile Subjective Subjective Interval history since last seen: has a painful spot just below the umbilicus she noticed last night, also epidural site hurts. No fever, no general abd pain, minimal vaginal bleeding, no clots, no foul odor, breasts soft and nontender, Exam GI Other: fundus firm 3 below umbilicus, nontender Objective Laboratory Results - last 24 hr 12/19/22 13:00 WBC 7.38 RBC 4.16 Hgb 11.7 Hct 36.4 MCV 88 MCH 28.1 MCHC 32.1 RDW 18.5 H Plt Count 248 MPV 9.0 Reviewed Pertinent PMH: Yes Time Spent with Patient Time Spent with Patient: 25-34 minutes Time was spent: preparing to see the patient(eg.review tests), obtaining and/or reviewing separately otained hiistory, ordering medications,tests, procedures, indepentently interpreting results and counseling the patient
[2022-12-19 13:36] LABS: ALT 28 U/L (14-59); AST 16 U/L (15-37); Albumin 2.6 g/dL (3.4-5.0); Alkaline Phosphatase 122 U/L (46-116); Anion Gap 11.7 mmol/L (3-11); BUN 9 mg/dL (7-18); Bilirubin, Total 0.4 mg/dL (0.2-1.0); CO2 24.3 mmol/L (21.0-32.0); CREATININE 0.6 mg/dL (0.55-1.02); Calcium 8.4 mg/dL (8.5-10.1); Chloride 105 mmol/L (98-107); Estimated GFR 122.23 (mL/min/1.73m2); Glucose 87 mg/dL (74-106); Sodium 141 mmol/L (136-145); Total Protein 6.6 g/dL (6.4-8.2)
== END 2022-12-19 14:54 | disposition home or self-care (01) ==
LOC: BCD 12-20 14:53
PROVIDERS: PCP Nurse Practitioner Family; Visit Provider Advanced Practice Midwife
DX: Z39.2 Encounter for routine postpartum follow-up (principal)
CPT/HCPCS: 36415; 80053; 85027; 99211

== ENCOUNTER 2023-03-03 02:03 | Outpatient (CLI) | payer MEDICAID, SELFPAY ==
[2023-03-03 11:50] LABS: GTT Comment See Comments
== END 2023-03-03 02:04 | disposition home or self-care (01) ==
LOC: LBO 02:04
PROVIDERS: PCP Nurse Practitioner Family; Visit Provider Advanced Practice Midwife
DX: Z86.32 Personal history of gestational diabetes (principal); R73.09 Other abnormal glucose
CPT/HCPCS: 36415; 82951

== ENCOUNTER 2024-10-11 11:57 | Outpatient (CLI) | payer MEDICAID, SELFPAY ==
--- NOTE | 2024-10-11 11:58 | W.NUTRFU ---
Date of service: 10/11/24 Time of Service: 11:30 Nutrition Note NOTE: Deysi arranged nutrition visit today from referral that was originally sent in 11/27/2023.? Has a hectic schedule and 2 young children at home and is now getting around to being able to carve out time for this appt to center around her weight management goals.? Wants to lose ?just like 20 lbs? and feels she is a little stuck ? too busy for prepping all the time.? Has tried to follow ~1200 calories per day.? Rolled oats for breakfast, a little deli turkey and cheese for lunch and then a dinner is her usual pattern ? but does fall prey to snacking and quick grab-and-go foods. I reviewed some macro goals with her and shared I felt she might be low on the protein side of things and especially low in fiber with none at her usually lunch and maybe 3 at breakfast. Showed her how to use resource with AI to plug in macro goals and have it edit her suggested menus based on her preferences and limitations and also her life (can ask it to consider easy meal prep d/t being busy single mom of 2). I highlighted protein goals and getting more protein from plants for fiber increases as well.? Also highlighted fiber and limit on added sugar for most beneficial changes. Also encouraged scheduled exercise apart from being active. She has my contact information should she desire follow up or more resources, need questions answered. Time Spent in Nutritional Counseling and Treatment: 25 min
== END 2024-10-11 11:58 | disposition home or self-care (01) ==
LOC: DS 11:58
PROVIDERS: PCP Family Medicine; Visit Provider Dietitian, Registered
DX: Z71.3 Dietary counseling and surveillance (principal)
CPT/HCPCS: 00123; 97802

== ENCOUNTER 2024-12-06 11:10 | Outpatient (REF) | payer MEDICAID, SELFPAY ==
[2024-12-09 13:01] LABS: Chlamydia Result Negative (Negative); GC Result Negative (Negative)
== END 2024-12-06 11:11 | disposition home or self-care (01) ==
LOC: LBN 11:10
PROVIDERS: PCP Family Medicine; Visit Provider Obstetrics & Gynecology
DX: Z30.430 Encounter for insertion of intrauterine contraceptive device (principal)
CPT/HCPCS: 87491; 87591

== ENCOUNTER 2025-05-02 10:29 | Outpatient (REF) | payer MEDICAID, SELFPAY ==
[2025-05-02 16:27] LABS: Cholesterol 210 mg/dL (<200); HDL Cholesterol 43 mg/dL (>or=50)
[2025-05-07 08:48] LABS: Apolipoprotein A1, S 120 mg/dL (>=140); Apolipoprotein B, S 112 mg/dL (See Comment); Apolipoprotein B/A 1 ratio 0.9 (See Comment)
== END 2025-05-02 10:30 | disposition home or self-care (01) ==
LOC: NCHCN 10:29
PROVIDERS: PCP Family Medicine; Visit Provider Family Medicine
DX: Z82.49 Family history of ischemic heart disease and other diseases of the circulatory system (principal); Z13.220 Encounter for screening for lipoid disorders; Z13.6 Encounter for screening for cardiovascular disorders
CPT/HCPCS: 80061; 82172; 83695

== ENCOUNTER → 2025-05-21 01:32 | Outpatient (CLI) | payer MEDICAID, SELFPAY ==
--- NOTE | 2025-05-21 10:04 | DI.US_ITS ---
Exam(s) US PELVIS TRANSVAGINAL EXAM: US PELVIS TRANSVAGINAL CLINICAL HISTORY: check IUD,breakthrough bleeding,z97.5,n92.1. TECHNIQUE: Transabdominal and transvaginal pelvic ultrasound was performed using standard protocol. COMPARISON: US US OB CHENG WEIGHT from 11/30/2022 FINDINGS: UTERUS: Position: Anteverted. Size: 7.8 long by 4.1 AP by 5.3 transverse cm Endometrium: 0.5 cm. Normal for patient's menstrual status. There is an IUD which is in good position. Myometrium: Unremarkable. Cervix: Unremarkable. OVARIES: Right: 2.6 x 1.8 x 2.7 cm Cyst or mass: No suspicious cystic or solid masses. Left: 5.2 x 4.5 x 3.9 cm Cyst or mass: No suspicious cystic or solid masses. There is a 4.5 x 4.2 x 3.4 cm dominant simple cyst on the left ovary. DOPPLER: Color: Symmetric and uniform flow to both ovaries. CUL-DE-SAC: Free fluid: None. Other: None. IMPRESSION: 1. Normal-appearing uterus with endometrial stripe within normal limits. 2. The IUD is present and in good position. 3. 4.5 x 4.2 x 3.4 cm simple cyst on the left ovary. A repeat pelvic ultrasound in 6 8 weeks may be obtained for re-evaluation of the left ovarian cyst. DATA REPOSITORY:
== END ==
LOC: DI 01:32
PROVIDERS: PCP Family Medicine; Visit Provider Obstetrics & Gynecology
DX: N92.1 Excessive and frequent menstruation with irregular cycle (principal); Z97.5 Presence of (intrauterine) contraceptive device; N83.292 Other ovarian cyst, left side
CPT/HCPCS: 76830; 76856

== ENCOUNTER 2025-06-25 10:56 | Outpatient (CLI) | payer MEDICAID, SELFPAY ==
[2025-06-25 11:35] LABS: Abs Immature Grans 0.00 10^3/uL (0.0-0.06); HCT 46.1 % (36.0-46.0); HGB 15.6 g/dL (11.2-15.7); Immature Grans % 0.0 %; MCH 30.8 pg (27.0-33.0); MCHC 33.8 % (32.0-36.0); MCV 91 fL (80-95); MPV 10.2 fL (8.0-11.0); Platelet Count 275 10^3/uL (130-400); RBC 5.06 10^6/uL (3.93-5.22); RDW 12.3 % (11.7-14.6); RDW-SD 40.9 fL; WBC 7.05 10^3/uL (4.4-10.8)
[2025-06-25 12:39] LABS: ALT 15 U/L (10-49); AST 15 U/L (<34); Albumin 4.4 g/dL (3.2-5.0); Alkaline Phosphatase 87 U/L (46-116); Anion Gap 10.6 mmol/L (3-11); BUN 14 mg/dL (9-23); Bilirubin, Total 0.6 mg/dL (0.2-1.2); CO2 23.4 mmol/L (20.0-31.0); Calcium 8.8 mg/dL (8.3-10.6); Chloride 108 mmol/L (98-107); Glucose 147 mg/dL (74-106); Potassium 3.5 mmol/L (3.5-5.1); Sodium 142 mmol/L (136-145); TSH 0.96 uIU/mL (0.55-4.78); Total Protein 7.1 g/dL (5.7-8.2)
== END 2025-06-25 10:57 | disposition home or self-care (01) ==
LOC: LBO 10:56
PROVIDERS: PCP Family Medicine; Visit Provider Internal Medicine
DX: K59.00 Constipation, unspecified (principal)
CPT/HCPCS: 36415; 80053; 82784; 83993; 84443; 85025